=== PATIENT | female | born 1980 | race Hispanic/Latino ===

== ENCOUNTER 2020-04-05 15:44 | Outpatient (CLI) | payer BC ==
[~2020-04-05 15:44] MED LIST: Iopamidol 370 76% 100 ML VIAL ONE
--- NOTE | 2020-04-05 16:30 | CT ---
EXAM: CT ANGIOGRAM OF THE HEAD INDICATION: Tinnitus, left ear. Whistling sound in the left ear x7 months. COMPARISON: None TECHNIQUE: CT angiogram of the head is performed in the axial plane. Three-dimensional reformatted im ages are submitted for interpretation. FINDINGS: NONCONTRAST HEAD CT: No parenchymal hemorrhage No extra-axial hematoma No midline shift Basilar cisterns are patent Brain volume is age-appropriate Cortical jaurez-white matter differentiation is preserved. No hydrocephalus Left maxillary sinus mucus retention cysts. Adequate aeration of the remaining paranasal sinuses and mastoid air cells. Intact calvarium POSTCONTRAST CT OF BRAIN: Pathologic enhancement: No pathologic enhancement the brain. CTA OF THE BRAIN: Intracranial internal carotid arteries:Symmetric enhancement and luminal diameter of the distal cervi raul and intracranial internal carotid arteries. No evidence of aberrant orientation. Anterior circulation: Symmetric enhancement and luminal diameter the A1 segments, M1 segments, proxim al A2 segments and proximal MCA branches. Intracranial vertebral arteries: Appropriate enhancement and luminal diameter. Bilateral PICA artery origins have appropriate enhancement and luminal diameter. Posterior circulation: Both vertebral arteries supply a normal appearing basilar artery. Appropriate enhancement and luminal diameter of both P1 segments. IMPRESSION: 1. No hemodynamically significant stenosis, occlusion or aneurysmal formation. Transcribed Date/Time: 04/05/2020 4:42 PM
== END 2020-04-05 15:45 | disposition home or self-care (01) ==
LOC: BICCT 15:44
PROVIDERS: ATTEND Student in an Organized Health Care Education/Training Program
DX: H93.12 Tinnitus, left ear (principal)
CPT/HCPCS: 70496; Q9967